=== PATIENT | female | born 1985 | race Caucasian/White ===

== ENCOUNTER 2018-05-12 09:26 | Emergency (ER) | payer MEDICAID ==
[~2018-05-12] VITALS: Ht 154.9 cm; Wt 68.0 kg
[2018-05-12 09:38] VITALS: Ht 154.9 cm; Wt 68.0 kg
[2018-05-12] MEDS ORDERED: NAPR-985 PO (11:07)
--- NOTE | 2018-05-12 11:14 | ERD ---
ER Documentation Chief Complaint Chief Complaint left lower quadrant x 1 month getting worse this last week HPI 32-year-old female presenting with left lower quadrant pain times 2 months. Over the last 2 weeks she states the pain has progressively gotten worse. She denies any vomiting. Denies any changes in bowel movement. She has been treated as of yesterday for UTI with Bactrim. Patient denies any hematuria. Denies back pain. Denies fever. Has not taken medication for the abdominal pain. Denies medical problems. NKDA. Surgical history denies. Social history denies ROS All systems reviewed and are negative except as per history of present illness. Medications Home Meds Active Scripts Naproxen* (Naprosyn*) 500 Mg Tablet, 500 MG PO BID PRN for PAIN AND/OR I NFLAMMATION, #30 TAB Prov:JAMEL DYSON PA-C 05/12/18 Allergies Allergies: Coded Allergies: No Known Allergy (Unverified , 05/12/18) PMhx/Soc Medical and Surgical Hx: pt denies Medical Hx, pt denies Surgical Hx Hx Alcohol Use: No Hx Substance Use: No Hx Tobacco Use: No Smoking Status: Never smoker FmHx Family History: No diabetes, No coronary disease, No other Physical Exam Vitals Vital Signs Date Temp Pulse Resp B/P (MAP) Pulse Ox O2 O2 Flow FiO2 Time Delivery Rate 05/12/18 97.6 96 19 129/78 98 09:38 (95) Physical Exam GENERAL: The patient is well-appearing, well-nourished, in no acute distress CHEST: Clear to auscultation bilaterally. There are no rales, wheezes or rhonchi. HEART: Regular rate and rhythm. No murmurs, clicks, rubs or gallops. No S3 or S4. ABDOMEN: Normal active bowel sounds. No distention. No organomegaly. Mild tenderness palpation the left lower quadrant with no rebound tenderness. BACK: No midline or flank tenderness. Result Diagram: 05/12/18 1003 05/12/18 1003 Results 24 hrs Laboratory Tests Test 05/12/18 10:03 05/12/18 10:05 White Blood Count 6.9 10^3/ul Red Blood Count 4.62 10^6/ul Hemoglobin 12.1 g/dl Hematocrit 38.6 % Mean Corpuscular Volume 83.5 fl Mean Corpuscular Hemoglobin 26.2 pg Mean Corpuscular Hemoglobin Concent 31.3 g/dl Red Cell Distribution Width 17.2 % Platelet Count 377 10^3/UL Mean Platelet Volume 8.9 fl Immature Granulocytes % 0.300 % Neutrophils % 61.6 % Lymphocytes % 31.8 % Monocytes % 5.4 % Eosinophils % 0.6 % Basophils % 0.3 % Nucleated Red Blood Cells % 0.0 /100WBC Immature Granulocytes # 0.020 10^3/ul Neutrophils # 4.2 10^3/ul Lymphocytes # 2.2 10^3/ul Monocytes # 0.4 10^3/ul Eosinophils # 0.0 10^3/ul Basophils # 0.0 10^3/ul Nucleated Red Blood Cells # 0.0 10^3/ul Urine Color YELLOW Urine Clarity CLOUDY Urine pH 5.0 Urine Specific [place] 1.026 Urine Ketones NEGATIVE mg/dL Urine Nitrite NEGATIVE mg/dL Urine Bilirubin NEGATIVE mg/dL Urine Urobilinogen NEGATIVE mg/dL Urine Leukocyte Esterase 1+ Neo/ul Urine Microscopic RBC 5 /HPF Urine Microscopic WBC 11 /HPF Urine Squamous Epithelial Cells MANY /HPF Urine Bacteria MODERATE /HPF Urine Mucus MODERATE /HPF Urine Hemoglobin NEGATIVE mg/dL Urine Glucose NEGATIVE mg/dL Urine Total Protein NEGATIVE mg/dl Sodium Level 139 mmol/L Potassium Level 3.9 mmol/L Chloride Level 104 mmol/L Carbon Dioxide Level 26 mmol/L Anion Gap 9 Blood Urea Nitrogen 14 mg/dl Creatinine 0.81 mg/dl Est Glomerular Filtrat Rate mL/min > 60 mL/min Glucose Level 84 mg/dl Calcium Level 9.3 mg/dl Total Bilirubin 0.2 mg/dl Direct Bilirubin 0.00 mg/dl Indirect Bilirubin 0.2 mg/dl Aspartate Amino Transf (AST/SGOT) 22 IU/L Alanine Aminotransferase (ALT/SGPT) 14 IU/L Alkaline Phosphatase 63 IU/L Total Protein 7.8 g/dl Albumin 4.5 g/dl Globulin 3.30 g/dl Albumin/Globulin Ratio 1.36 Lipase 78 U/L POC Beta HCG, Qualitative NEGATIVE Procedures/MDM DIAGNOSTIC IMAGING REPORT Patient: CARRILLO MURDOCK : 1985 Age: 32 Sex: F MR #: [id number] DOS: 05/12/18 0954 Ordering MD: RICK DYSON PA-C Location: [facility] Room/Bed: PROCEDURE: CT abdomen and pelvis without contrast. CLINICAL INDICATION: Abdominal pain TECHNIQUE: Continues 2.5 mm axial images were obtained from the domes of the diaphragms to the inferior pubic rami. No oral or intravenous contrast was administered. The calculated dose length product (DLP) = 477.64 mGy-cm. Exam CTDlvol = 8.3 mGy. One or more of the following dose reduction techniques were used: Automated exposure control, adjustment of the mA and or KV according to patient size, or use of iterative reconstruction technique. One or more of the following dose reduction techniques were used: Automated exposure control, adjustment of the mA and or KV according to patient size, or use of iterative reconstruction technique. DICOM images are available. COMPARISON: None. FINDINGS: Lung bases are clear. No pleural pericardial fluid is seen. Liver, gallbladder, pancreas, spleen, adrenals, and kidneys are within normal limits on this noncontrast study. There is a 1 mm nonobstructing right lower pole intrarenal calculus.. Aorta is normal in caliber. No pathologically enlarged mesenteric lymph nodes are seen. Stomach and small bowel loops are within normal limits. No small bowel dilatation or obstruction is identified. There is no free fluid, free air, abscess in the upper abdomen CT pelvis: Images through the pelvis demonstrate no free fluid, free air, abscess. Bladder is normally distended grossly unremarkable. Uterus and adnexa are within normal limits. Evaluation of the colon demonstrates no diverticulosis, diverticulitis or acute colitis. Normal appendix and terminal ileum are identified. There is mild right-sided constipation. No pathologically enlarged iliac chain lymph nodes are seen. No destructive bony lesions are identified. IMPRESSION: 1. No acute inflammatory process, mass, adenopathy on this noncontrast study. 2. Normal appendix and terminal ileum. 3. Mild right-sided constipation. 4. 1 mm nonobstructing right lower pole intrarenal calculus. No associated hydronephrosis DIAGNOSTIC IMAGING REPORT Patient: CARRILLO MURDOCK : 1985 Age: 32 Sex: F MR #: [id number] DOS: 05/12/18 0954 Ordering MD: RICK DYSON PA-C Location: [facility] Room/Bed: PROCEDURE: US Pelvis Non-OB CLINICAL INDICATION: Abdominal pain TECHNIQUE: Images were taken during real time trans pelvic and endovaginal interrogation. Color-flow and Doppler interrogation of the ovaries was performed. COMPARISON: None FINDINGS: Uterus: The uterus is anteverted and normal in size measuring 8.55 cm in sagittal diameter and 5.01 cm x 4.79 cm in cross diameter. The endometrial stripe measures 8.5 mm. Ovaries: The right ovary measures 4.22 cm x 3.1 cm x 2.24 cm and appears unremarkable. The left ovary measures 4.44 cm x 3.51 cm x 2.54 cm and and contains a 2.4 cm cyst which contains a tiny daughter cyst of approximately 5 mm.. Vascular flow is demonstrated in each ovary with Doppler. Adnexa: No adnexal mass is identified. Free intraperitoneal fluid: None visualized. IMPRESSION: 1. Normal sized anteverted uterus with an 8.5 mm endometrial stripe. 2. There is a 2.4 cm left ovarian cyst which contains a 5 mm daughter cyst. The right ovary appears normal. Vascular flow is demonstrated in each ovary on Doppl er. 3. No adnexal mass or free fluid is evident. MDM: 32-year-old female presents with left lower quadrant pain. Patient's pain is likely associated and due to ovarian cyst. I have low suspicion for ovarian torsion. I have low suspicion for other acute abdominal emergencies including but not limited to diverticulitis or colitis. Patient is discharged stricter precautions and told to follow-up with primary care within 1-2 days for close evaluation. Patient is told symptoms change or worsen to immediately return to ER. All questions answered at discharge Departure Diagnosis: Primary Impression: Ovarian cyst Condition: Stable Patient Instructions: Ovarian Cyst Referrals: [facility] YOU HAVE RECEIVED A MEDICAL SCREENING EXAM AND THE RESULTS INDICATE THAT YOU DO NOT HAVE A CONDITION THAT REQUIRES URGENT TREATMENT IN THE EMERGENCY DEPARTMENT. FURTHER EVALUATION AND TREATMENT OF YOUR CONDITION CAN WAIT UNTIL YOU ARE SEEN IN YOUR DOCTORS OFFICE WITHIN THE NEXT 1-2 DAYS. IT IS YOUR RESPONSIBILITY TO MAKE AN APPOINTMENT FOR FOLOW-UP CARE. IF YOU HAVE A PRIMARY DOCTOR --you should call your primary doctor and schedule an appointment IF YOU DO NOT HAVE A PRIMARY DOCTOR YOU CAN CALL OUR PHYSICIAN REFERRAL HOTLINE AT IF YOU CAN NOT AFFORD TO SEE A PHYSICIAN YOU CAN CHOSE FROM THE FOLLOWING [facility] CL[facility]ICS [facility] [address] [facility] [address] [facility] [address] [facility] [address] [facility] [facility] [address] [facility] [facility] [address] Additional Instructions: FOLLOW UP WITH YOUR PRIMARY CARE PHYSICIAN TOMORROW.Return to this facility if you are not improving as expected. JAMEL DYSON PA-C May 12, 2018 11:14
== END 2018-05-12 11:15 | disposition home or self-care (01) ==
LOC: FTE 09:26
DX: N83.202 Unspecified ovarian cyst, left side (principal); R10.2 Pelvic and perineal pain
CPT/HCPCS: 36415; 74176; 76830; 76856; 80053; 81001; 81025; 83690; 85025; 87086; Z7502